=== PATIENT | male | born 1985 | race Caucasian/White ===

== ENCOUNTER 2017-04-14 23:42 | Emergency (ER) | payer BC ==
--- NOTE | 2017-04-15 00:24 | EDM.PDOC ---
ED HPI GENERAL MEDICAL PROBLEM - General Chief Complaint: Genitourinary Problem Stated Complaint: PT HAS UTI Time Seen by Provider: 04/15/17 00:05 - History of Present Illness INITIAL COMMENTS - FREE TEXT/NARRATIVE: HISTORY AND PHYSICAL: History of present illness: The patient is a 32-year-old male who presents with complaints of some vesicular -like sores on the foreskin of his penis that literally showed up several hours ago and there is discomfort in the area. He has no dysuria frequency urgency or hematuria and no flank pain no abdominal pain no testicular pain or swelling. The patient says that when he was back home he had something similar show up higher on the skin of the pubis and he saw a doctor who gave him a cream and a pill and it went away. The patient denies STD risks but he says that he does not use condoms and he has only one partner. He has had no penile discharge. He hasn't noticed any other sores elsewhere. He tells me that he noticed these few bumps and he popped them and fluid came out of them prior to coming here. Review of systems: As per history of present illness and below otherwise all systems reviewed and negative. Past medical history: As per history of present illness and as reviewed below otherwise noncontributory. Surgical history: As per history of present illness and as reviewed below otherwise noncontributory. Social history: No reported history of drug or alcohol abuse. Family history: As per history of present illness and as reviewed below otherwise noncontributory. Physical exam: Gen.: Well-developed well-nourished man who is nontoxic and speaking clearly and easily in the ED. Vital signs have been reviewed by me HEENT: Atraumatic, normocephalic, negative for conjunctival pallor or scleral icterus, mucous membranes moist, throat clear, neck supple, nontender, trachea midline. Lungs: Clear to auscultation, breath sounds equal bilaterally, chest nontender. Heart: S1S2, regular rate and rhythm no overt murmurs Abdomen: Soft, nondistended, nontender. Negative for masses or hepatosplenomegaly. Negative for costovertebral tenderness. Pelvis: Stable nontender. Genitourinary: Testicles are bilaterally descended and there is no evidence of any testicular swelling or tenderness on palpation. There is no spermatic cord tenderness, cremasterics reflex is intact and there is no inguinal adenopathy. On the dorsal aspect of the foreskin of the penis there is a small cluster of vesicular-like bumpy lesions without any fluid that can be expressed. There is no surrounding erythema. There is tenderness on palpation of this small area. There are no other lesions seen in the perineum. Rectal: Deferred. Extremities: Atraumatic, negative for cords or calf pain. Neurovascular unremarkable. Neuro: Awake, alert, oriented. Cranial nerves II through XII unremarkable. Cerebellum unremarkable. Motor and sensory unremarkable throughout. Exam nonfocal. Diagnostics: Urine for GC and Chlamydia Therapeutics: [] I discussed with the patient that we could not do a swab for herpes as there was no fluid to be obtained and that we would treat him prophylactically but that I recommended follow up with urology for further testing and confirmation or elimination of this is the diagnosis. He states understanding and is agreeable. I told him to refrain from having sexual intercourse until he is done with the treatment. Impression: Penile lesion, suspicious for HSV Definitive disposition and diagnosis as appropriate pending reevaluation and review of above. penis Pain Score (Numeric/FACES): 2 - Related Data Allergies Allergy/AdvReac Type Severity Reaction Status Date / Time No Known Allergies Allergy Verified 04/14/17 23:50 Home Meds: Home Meds . [No Known Home Meds] 04/14/17 [History] Past Medical History - Past Health History Medical/Surgical History: Denies Medical/Surgical History - Past Surgical History GI Surgical History: Reports: Other (See Below) Other GI Surgeries/Procedures: pelvic sx Social & Family History - Family History Family Medical History: Noncontributory - Tobacco Use Smoking Status *Q: Never Smoker - Recreational Drug Use Recreational Drug Use: No ED ROS GENERAL - Review of Systems Review Of Systems: ROS reveals no pertinent complaints other than HPI. ED EXAM, GENERAL - Physical Exam Exam: See Below (See dictation) Course - Vital Signs Last Recorded V/S: Last Vital Signs Temp 36.4 C 04/14/17 23:42 Pulse 79 04/14/17 23:42 Resp 18 04/14/17 23:42 BP 134/95 H 04/14/17 23:42 Pulse Ox 98 04/14/17 23:42 - Orders/Labs/Meds Orders: Active Orders 24 hr Category Date Time Status CHLAMYDIA AND GONORRHEA BY [facility] Stat Lab 04/15/17 00:19 Ordered Departure - Departure Time of Disposition: 00:23 Disposition: Home, Self-Care 01 Condition: Good Clinical Impression: Lesion of penis - Discharge Information Referrals: PCP,None [Primary Care Provider] - Additional Instructions: The following information is given to patients seen in the emergency department who are being discharged to home. This information is to outline your options for follow-up care. We provide all patients seen in our emergency department with a follow-up referral. The need for follow-up, as well as the timing and circumstances, are variable depending upon the specifics of your emergency department visit. If you don't have a primary care physician on staff, we will provide you with a referral. We always advise you to contact your personal physician following an emergency department visit to inform them of the circumstance of the visit and for follow-up with them and/or the need for any referrals to a consulting specialist. The emergency department will also refer you to a specialist when appropriate. This referral assures that you have the opportunity for followup care with a specialist. All of these measure are taken in an effort to provide you with optimal care, which includes your followup. Under all circumstances we always encourage you to contact your private physician who remains a resource for coordinating your care. When calling for followup care, please make the office aware that this follow-up is from your recent emergency room visit. If for any reason you are refused follow-up, please contact the [facility] emergency department at and ask to speak to the emergency department charge nurse. [facility] [address] [place] [address] [id number] [facility] Primary care- Internal Medicine and Family [address] [id number] Please call and follow-up with her urologist as we discussed or one of our primary care physicians in the clinic. Please take medications as prescribed. Please refrain from sexual intercourse until you are finished with these medications. Please return to the ER as needed and as discussed. Please note that your urine test that was sent off today will take at least 2 days for results and he will only be contacted if it is positive and needs treatment. - My Orders Last 24 Hours: My Active Orders 04/15/17 00:19 CHLAMYDIA AND GONORRHEA BY [facility] Stat - Assessment/Plan Last 24 Hours: My Active Orders 04/15/17 00:19 CHLAMYDIA AND GONORRHEA BY [facility] Stat
== END 2017-04-15 00:34 | disposition home or self-care (01) ==
LOC: MW.ED 23:42
DX: N50.9 Disorder of male genital organs, unspecified (principal)
CPT/HCPCS: 87491; 87591; 99283; 99284